=== PATIENT | female | born 1945 | race African-American/Black ===

== ENCOUNTER 2022-08-14 20:19 | Emergency (ER) | payer OTHER ==
[~2022-08-14] VITALS: Ht 167.6 cm; Wt 69.0 kg
[~2022-08-14 20:19] MED LIST: ASPI-1497 MT; CLOP-31 PO; METF-414 MT; VALS1TAB75 MT
[2022-08-14 20:41] VITALS: BP 159/84
== END 2022-08-15 02:40 | disposition home or self-care (01) ==
LOC: ER 20:19
DX: S00.01XA Abrasion of scalp, initial encounter (principal); E11.9 Type 2 diabetes mellitus without complications; I10 Essential (primary) hypertension; M54.30 Sciatica, unspecified side; Z86.73 Personal history of transient ischemic attack (TIA), and cerebral infarction without residual deficits; Z79.82 Long term (current) use of aspirin; Z79.84 Long term (current) use of oral hypoglycemic drugs; Z86.711 Personal history of pulmonary embolism; Z79.01 Long term (current) use of anticoagulants; Z88.2 Allergy status to sulfonamides; W22.8XXA Striking against or struck by other objects, initial encounter; Y93.89 Activity, other specified; Y92.810 Car as the place of occurrence of the external cause; Y99.8 Other external cause status
CPT/HCPCS: 99284